=== PATIENT | female | born 1990 | race Caucasian/White ===

== ENCOUNTER 2016-09-22 19:06 | Emergency (ER) | payer BC, SELFPAY ==
--- NOTE | 2016-09-23 03:28 | ER ---
ADMIT: 09/22/2016 RM/LOC: ER [facility] MR#: [id number] [address] [id number] [address] [address] [place] [address] Emergency Room Report SEX: F AGE: 25 : 1990 DATE: 09/22/2016 The patient is a 25-year-old female, complaining of right hypogastric abdominal pain at times right lower quadrant without urgency, fevers, chills, nausea, vomiting, anorexia, exacerbating or relieving maneuvers. Family history is positive for gallbladder disease in sister as well as renal stones in sister. Exam remarkable for nontoxic, afebrile, obese female, minimally tender hypogastric to right upper quadrant region. CT abdomen, negative. Ultrasound of gallbladder, negative. Pelvic ultrasound, negative for torsion or ruptured cyst. Normal CBC, CMP, UA. Negative . Lipase 108. Advised low-fat, low-protein diet. Follow up with Dr. Harrington if not improved for biliary scan. Johnathan Sidhu MD/ leatha JOB #: [id number] CC: Johnathan Sidhu MD, Attending Physician Gabriela Harrington MD, Family Physician Gabriela Harrington MD
== END 2016-09-22 23:47 | disposition home or self-care (01) ==
LOC: ER 19:06
DX: K80.50 Calculus of bile duct without cholangitis or cholecystitis without obstruction (principal); E03.9 Hypothyroidism, unspecified; Z79.899 Other long term (current) drug therapy